=== PATIENT | female | born 1960 | race African-American/Black ===

== ENCOUNTER → 2016-07-28 | Outpatient (CLI) | payer MEDICAID ==
[~2016-07-28] MED LIST: ADVA100A INH; ALBUAER3 INH; ALFA250T PO; AMBI5TAB PO; APIX5TAB PO; ASCO100037 PO; BACL10TA PO; CALC600T55 CHEW; CARA1TAB6 PO; CHEL50TA PO; CHOL1TAB41 PO; FLUT1INH INH; GABA300C5 PO; HYDR-3583 PO; IRON27TA PO; LABE200T2 PO; MULT1TAB46 PO; PREV15CA15 PO; PROM12.54 PO; ROSU20 PO; SYMB160A INH; VITA150T PO; XANA1TAB2 PO; [UNRECOGNIZED DRUG - CODE] SL
[2016-07-28 10:37] LABS: AUTOMATED NEUTROPHIL # 7.6 TH/MM3 (1.8-7.7); BASOPHIL % 0.3 % (0.0-2.0); EOSINOPHIL # 0.2 TH/MM3 (0-0.4); EOSINOPHIL % 1.6 % (0.0-4.0); HEMATOCRIT 35.5 % (35.0-46.0); HEMO FLAGS DIFF FINAL; MEAN CELL VOLUME 91.8 FL (80.0-100.0); MEAN CORPUSCULAR HEMOGLOBIN 30.9 PG (27.0-34.0); MEAN CORPUSCULAR HGB CONC 33.6 % (32.0-36.0); MONO % 5.2 % (0.0-8.0); NEUT % 81.9 % (16.0-70.0); PLATELET COUNT 279 TH/MM3 (150-450); RED BLOOD COUNT 3.86 MIL/MM3 (4.00-5.30); WHITE BLOOD COUNT 9.3 TH/MM3 (4.0-11.0)
[2016-07-28 10:46] LABS: APTT (PATIENT) 27.8 SEC (24.3-30.1); INTERNATIONAL NORMALIZED RATIO 0.9 RATIO
[2016-07-28 11:02] LABS: ALT (GPT) 24 U/L (10-53); ANION GAP 4 MEQ/L (5-15); AST (GOT) 16 U/L (15-37); BICARBONATE 32.2 MEQ/L (21.0-32.0); BLOOD UREA NITROGEN 8 MG/DL (7-18); CHLORIDE 103 MEQ/L (98-107); GLOMERULAR FILTRATION RATE 75 ML/MIN (>89); GLUCOSE,FASTING 162 MG/DL (74-99); POTASSIUM 4.6 MEQ/L (3.5-5.1); SODIUM (NA) 139 MEQ/L (136-145)
[2016-07-28 11:05] LABS: ALKALINE PHOSPHATASE 75 U/L (45-117); TOTAL BILIRUBIN ADULT 0.4 MG/DL (0.2-1.0)
--- NOTE | 2016-07-28 12:52 | RADRPT ---
EXAM DATE/TIME: 07/28/2016 11:08 [place] COMPARISON: No previous studies available for comparison. INDICATIONS : Evaluate for pneumonia, pneumothorax, or communicable disease. MEDICAL HISTORY : None. SURGICAL HISTORY : Mastectomy, bilateral. Port placed. ENCOUNTER: Initial ACUITY: 1 day PAIN SCORE: 0/10 LOCATION: Bilateral chest FINDINGS: PA and lateral views of the chest demonstrate the lungs to be symmetrically aerated without evidence of mass, infiltrate or effusion. The cardiomediastinal contours are unremarkable. Osseous structure s are intact. Right [id number] catheter is noted in place. CONCLUSION: No acute disease. Wolfgang Feldman MD on July 28, 2016 at 12:49 Board Certified Radiologist. This report was verified electronically.
--- NOTE | 2016-07-28 14:58 | EKG ---
Date Performed: 07/28/2016 Time Performed: 10:27:07 PTAGE: 56 years EKG: Sinus rhythm LEFT ATRIAL ENLARGEMENT POSSIBLE LEFT VENTRICULAR HYPERTROPHY POSSIBLE SEPTAL MYOCARDIAL INFARCTION, OF INDETERMINATE AGE ABNORMAL ECG NO PREVIOUS TRACING DOCTOR: Jason Crawford Interpretating Date/Time 07/28/2016 14:56:26
== END ==
LOC: CPRE 10:05
PROVIDERS: ATTEND Obstetrics & Gynecology Gynecologic Oncology
DX: Z01.810 Encounter for preprocedural cardiovascular examination (principal); Z01.812 Encounter for preprocedural laboratory examination; N85.00 Endometrial hyperplasia, unspecified; R94.31 Abnormal electrocardiogram [ECG] [EKG]
CPT/HCPCS: 36415; 71020; 80053; 85025; 85610; 85730; 93005

== ENCOUNTER → 2016-08-09 | Day surgery (SDC) | payer MEDICAID ==
[~2016-08-09] VITALS: Ht 154.9 cm; Wt 82.9 kg
[~2016-08-09] MED LIST changes: +*MEPERIDINE 25 MG INJ VIAL PERIprocedural Use ONLY ONE; +ACETAMINOPHEN 1000 MG/100 ML VIAL IV ONE; +ACETAMINOPHEN/HYDROcodone 325 MG/5 MG TAB PO PRN; +CHLORHEXIDINE GLUCONATE 2 % 1 PACK (2 CLOTHS) TOPICAL PRN; +DO NOT ADM ANY ANTICOAGULANT DRUGS PRN; +FAMOTIDINE 20 MG/2 ML VIAL ONE; +FERRIC SUBSULFATE 8 ML TOP SOLN TOPICAL ONE; +Hemodialysis Vas Acc Cath PRN Heparin 1000 unit/ml Flush IV FLUSH; +Hemodialysis Vas Access Cath PRN NS Lock Flush IV FLUSH; +INSULIN HUMAN REGULAR 1,000 UNITS/10 ML VIAL SQ PRN; +KETOROLAC TROMETHAMINE 30 MG/ML (IVP) VIAL IV PUSH PRN; +LACTATED RINGER'S 1000 ML IV PRN; +METOCLOPRAMIDE HCL 10 MG/2 ML VIAL ONE; +METOPROLOL TARTRATE 25 MG TAB PO PRN; +MIDAZOLAM HCL 2 MG/2 ML VIAL ONE; +ONDANSETRON HCL 4 MG/2 ML VIAL IV PUSH ONE; +POVIDONE IODINE 5% (ANTISEPSIS KIT) 4 APPLICATIONS EACH NARE PRN; +PROPOFOL 200 MG/20 ML AMP IV ONE; +RESP: ALBUTEROL 2.5 MG/IPRATROPIUM 0.5 MG NEB (SCH) ONE; +SODIUM CHLORID 0.9% 500 ML IV PRN; +VASOPRESSIN INJ 20 UNITS/ML VIAL ONE; +fentaNYL CITRATE 250 MCG/5 ML AMP ONE
[2016-08-09 12:36] VITALS: BP 124/74; PULSE 72; RESP 18; TEMP 98.5; O2SAT 100
[2016-08-09 16:39] VITALS: BP 136/77; PULSE 78; RESP 18; TEMP 98; O2SAT 100
--- NOTE | 2016-08-11 09:56 | MP ---
cc: RANI PEREZ PADMAJA M.D. MOLPUS, KELLY L. MD CARAMES, ERNEST J. MD DATE OF SURGERY 08/09/2016 PREOPERATIVE DIAGNOSIS Thickened endometrial stripe, postmenopausal bleeding, subtle PET AVID activity in the endometrium. POSTOPERATIVE DIAGNOSIS Thickened endometrial stripe, postmenopausal bleeding, subtle PET AVID activity in the endometrium. PROCEDURE Examination under anesthesia, fractional dilation and curettage. SURGEON Cara Drew MD [employer] [place] certified first assistant ANESTHESIA Laryngeal ask anesthesia ESTIMATED BLOOD LOSS 20 cc HISTORY A 56-year-old female who has undergone treatment and surveillance for breast cancer found to have a PET AVID signal in the endometrium. Ultrasound showed the stripe to be slightly prominent at 8 mm and she does report occasional postmenopausal bleeding generally light. She is on blood thinners (Eliquis) because of a history of TIAs, possible stroke. She was counseled regarding the need for further evaluation, has held her Eliquis for a couple of days and presents now for surgical evaluation. FINDINGS On exam under anesthesia, there is no appreciably enlarged inguinal lymph nodes. External genitalia without mass or lesion. There is some uterine relaxation as the cervix comes down to the level of the introitus, mild cystocele and rectocele. Cervix grossly appears normal. The uterine cavity sounds to 8 cm. There is what feels to be an intramural leiomyoma on the left side of the uterus the surface of which overlying can be appreciated on curetting. From the endocervix, a small amount of endocervical tissue was obtained. From the endometrium, small polypoid fragments are obtained. At the completion of curetting, all surfaces of the endometrium were gritty. PROCEDURE The patient taken to the operating room, placed in the dorsal lithotomy position after laryngeal mask anesthesia was performed. Time-out was undertaken. She was identified by sight recognition and hospital ID bracelet and the proposed procedure was reviewed and confirmed. She was carefully positioned in stirrups. Exam under anesthesia was performed with the findings as described above. She was prepped and draped in a sterile fashion. In-and-out catheterization of bladder was performed. The cervix was grasped, uterine cavity was sounded, endometrial curettings were performed with multiple passes circumferentially. The tissue combined labeled as endocervical curetting. The endocervical canal was then gradually dilated until a small curette was able to be passed. Curetting of the endometrium was performed circumferentially with multiple passes with findings as described above. The tissue was combined as endometrial curettings. The cervix instrument was removed. The tenaculum sites were rendered hemostatic with topical Monsel's solution. All sites were hemostatic. There were no remaining foreign objects in the vagina. Preliminary and final counts were correct. She was pending reversal of anesthesia when I left the operating room to precede her to the Post Anesthesia Care Unit. MD JOSE MANUEL Bello/RO /2:13 PM /9:50 AM
== END | disposition home or self-care (01) ==
LOC: HSDC 11:03
PROVIDERS: ATTEND Obstetrics & Gynecology Gynecologic Oncology
DX: N95.0 Postmenopausal bleeding (principal); I10 Essential (primary) hypertension; J45.909 Unspecified asthma, uncomplicated; K21.9 Gastro-esophageal reflux disease without esophagitis; F41.9 Anxiety disorder, unspecified; Z86.73 Personal history of transient ischemic attack (TIA), and cerebral infarction without residual deficits; Z85.3 Personal history of malignant neoplasm of breast
CPT/HCPCS: 00952; 58120; 88305; 94664; J0131; J2175; J2250; J2405; J2765; J3010